=== PATIENT | female | born 1950 | race Caucasian/White ===

== ENCOUNTER 2018-01-18 09:53 | Emergency (ER) | payer SELFPAY ==
[~2018-01-18] VITALS: Ht 157.5 cm; Wt 85.0 kg
[2018-01-18] MEDS ORDERED: ONDANSETRON HCL 4MG/2ML VIAL IV STA (10:40)
[2018-01-18] MEDS ORDERED: SODIUM CHLORIDE 0.9% 500 ML IV ONE (10:40)
[2018-01-18] MEDS ORDERED: MORPHINE SULFATE 4 MG/ML CPJ (NOT FOR IM USE) IV STA (10:40)
[2018-01-18] MEDS ORDERED: KETOROLAC 30MG/ML VIAL IV STA (10:40)
[2018-01-18 10:59] LABS: BASOPHILS % 0.4 % (0.0-2.0); EOSINOPHILS % 0.4 % (0.0-5.0); HEMATOCRIT. 43.8 % (36.0-48.0); HEMOGLOBIN. 15.3 g/dL (12.0-16.0); LYMPHOCYTES % 18.7 % (20.0-50.0); MEAN CORPUSCULAR HEMOGLOBIN 30.6 pg (28.0-32.0); MEAN CORPUSCULAR VOLUME 87.8 fL (81.0-99.0); MEAN PLATELET VOLUME 8.2 fl (7.4-10.4); MONOCYTES % 4.6 % (2.0-8.0); NEUTROPHILS % 75.9 % (40.0-76.0); PLATELET 246 x1000/uL (130-400); RED BLOOD CELL COUNT 4.99 mill/uL (4.2-5.4); RED CELL DISTRIBUTION WIDTH 12.6 % (11.6-14.6)
[2018-01-18 11:06] LABS: CHLORIDE 102 mEq/L (98-107)
[2018-01-18 11:18] LABS: PARTIAL THROMBOPLASTIN TIME 24.7 sec (23.4-31.0); PROTHROMBIN TIME 10.7 sec (9.4-11.6)
[2018-01-18] MEDS ORDERED: CLONIDINE 0.2MG TABLET PO ONE (12:30)
[2018-01-18 13:41] VITALS: BP 105/52
== END 2018-01-18 13:54 | disposition home or self-care (01) ==
LOC: ER 11:04
DX: R22.1 Localized swelling, mass and lump, neck (principal); I10 Essential (primary) hypertension
CPT/HCPCS: 36415; 70486; 80053; 84443; 85025; 85610; 85730; 96361; 96374; 96375; 99285; J1885; J2270; J2405; J7040; Z7610